=== PATIENT | male | born 1955 | race Caucasian/White ===

== ENCOUNTER 2023-02-09 16:46 | Outpatient (CLI) | payer MEDICARE ==
[2023-02-09 17:46] LABS: HEMATOCRIT 33.5 % (42.0-52.0); HEMOGLOBIN 11.5 g/dl (14.0-17.9); MEAN CORPUSCULAR HEMOGLOBIN 33.1 PG (27.0-31.0); MEAN CORPUSCULAR HGB CONC 34.3 g/dL (33.0-36.5); MEAN CORPUSCULAR VOLUME 96.6 FL (78-98); MEAN PLATELET VOLUME 9.6 FL (7.4-10.4); PLATELET COUNT 254 X10'3 (140-440); RED BLOOD COUNT 3.47 X10'6 (4.70-6.10); RED CELL DISTRIBUTION WIDTH 16.4 % (11.5-14.5); WHITE BLOOD COUNT 7.1 X10'3 (4.5-11.0)
[2023-02-09 18:00] LABS: ALANINE AMINOTRANSFERASE 450 U/L (12-78); ALBUMIN 3.3 G/DL (3.4-5.0); ANION GAP 11 (8-16); BILIRUBIN,TOTAL 16.8 MG/DL (0.1-1.0); BLOOD UREA NITROGEN 19 MG/DL (7-18); CALCIUM 9.7 MG/DL (8.5-10.1); CHLORIDE 100 MMOL/L (99-107); SODIUM 136 MMOL/L (135-145); TOTAL CARBON DIOXIDE 25.3 MMOL/L (24-32)
[2023-02-09 18:22] LABS: ANISOCYTOSIS 1+; PLATELET ESTIMATE NORMAL; TARGET CELLS 3+; TOTAL CELLS COUNTED 100
[2023-02-09 18:23] LABS: LARGE PLATELETS FEW
[2023-02-09 18:24] LABS: ALKALINE PHOSPHATASE 1050 IU/L (46-116); ASPARTATE AMINO TRANSFERASE 221 U/L (10-37); BUN/CREATININE RATIO 31.7 (10.0-20.0); GLUCOSE 205 MG/DL (70-104); POTASSIUM 3.8 MMOL/L (3.5-5.1); STOMATOCYTES 1+; TOTAL PROTEIN 6.5 G/DL (6.4-8.2); eGFR > 90 ML/MIN
[2023-02-11] MEDS ORDERED: LISI2.5T14 PO (14:57)
[2023-02-11] MEDS ORDERED: INSU100V9 SQ (14:57)
[2023-02-11] MEDS ORDERED: SIMV-45 PO (14:57)
[2023-02-11] MEDS ORDERED: INSU100V56 SQ (14:57)
[2023-02-11] MEDS ORDERED: METF-1203 PO (14:57)
== END 2023-02-09 23:59 | disposition home or self-care (01) ==
LOC: LAB 16:46
PROVIDERS: ATTEND Internal Medicine
DX: R17 Unspecified jaundice (principal)
CPT/HCPCS: 36415; 80053; 85007; 85025

== ENCOUNTER 2023-02-12 06:28 | Emergency (ER) | payer MEDICARE ==
[~2023-02-12] VITALS: Ht 170.2 cm; Wt 59.1 kg
[~2023-02-12 06:28] MED LIST: INSU100V56 SQ; INSU100V9 SQ; LISI2.5T14 PO; METF-1203 PO; SIMV-45 PO
[2023-02-12 07:21] VITALS: BP 125/53
== END 2023-02-12 07:23 | disposition home or self-care (01) ==
LOC: ER 06:29
DX: R17 Unspecified jaundice (principal); I10 Essential (primary) hypertension; E11.9 Type 2 diabetes mellitus without complications; G89.29 Other chronic pain; M54.9 Dorsalgia, unspecified; F12.10 Cannabis abuse, uncomplicated; Z79.899 Other long term (current) drug therapy
CPT/HCPCS: 99281

== ENCOUNTER 2023-02-16 11:41 | Emergency (ER) | payer MEDICARE ==
[~2023-02-16] VITALS: Ht 170.2 cm; Wt 59.1 kg
[2023-02-16 14:15] VITALS: BP 123/64
[2023-02-16 15:03] LABS: HEMOGLOBIN 11.2 g/dl (14.0-17.9); WHITE BLOOD COUNT 8.5 X10'3 (4.5-11.0)
[2023-02-16 15:05] LABS: BASOPHILS % (AUTO) 0 % (0-1); EOSINOPHILS # (AUTO) 0.2 X10'3 (0-0.9); EOSINOPHILS % (AUTO) 1.8 % (0-6); HEMATOCRIT 33.4 % (42.0-52.0); LYMPHOCYTES # (AUTO) 5.8 X10'3 (1.1-4.8); LYMPHOCYTES % (AUTO) 68.4 % (21-51); MEAN CORPUSCULAR HEMOGLOBIN 33.2 PG (27.0-31.0); MEAN CORPUSCULAR HGB CONC 33.6 g/dL (33.0-36.5); MEAN CORPUSCULAR VOLUME 98.8 FL (78-98); MEAN PLATELET VOLUME 9.3 FL (7.4-10.4); MONOCYTES # (AUTO) 0.5 X10'3 (0-0.9); MONOCYTES % (AUTO) 6.4 % (2-12); NEUTROPHILS % (AUTO) 23.4 % (42-75); PLATELET COUNT 294 X10'3 (140-440); RED BLOOD COUNT 3.38 X10'6 (4.70-6.10); RED CELL DISTRIBUTION WIDTH 17.9 % (11.5-14.5)
[2023-02-16 15:21] LABS: ANISOCYTOSIS 1+; PLATELET ESTIMATE NORMAL; TARGET CELLS 2+; TOTAL CELLS COUNTED 100
[2023-02-16 15:22] LABS: ALANINE AMINOTRANSFERASE 581 U/L (12-78); ALBUMIN 3.2 G/DL (3.4-5.0); ANION GAP 10 (8-16); BILIRUBIN,TOTAL 18.5 MG/DL (0.1-1.0); BLOOD UREA NITROGEN 18 MG/DL (7-18); BUN/CREATININE RATIO 34.6 (10.0-20.0); CALCIUM 9.6 MG/DL (8.5-10.1); CHLORIDE 104 MMOL/L (99-107); CREATININE 0.52 MG/DL (0.60-1.10); LIPASE 185 U/L (73-393); SODIUM 140 MMOL/L (135-145); STOMATOCYTES 1+; TOTAL CARBON DIOXIDE 25.8 MMOL/L (24-32); eGFR > 90 ML/MIN
[2023-02-16 15:56] LABS: ASPARTATE AMINO TRANSFERASE 269 U/L (10-37); GLUCOSE 163 MG/DL (70-104); POTASSIUM 3.5 MMOL/L (3.5-5.1); TOTAL PROTEIN 6.4 G/DL (6.4-8.2)
[2023-02-16 16:12] LABS: ALKALINE PHOSPHATASE 1074 IU/L (46-116)
== END 2023-02-16 17:42 | disposition home or self-care (01) ==
LOC: ER 11:42
DX: E80.6 Other disorders of bilirubin metabolism (principal); R17 Unspecified jaundice; I10 Essential (primary) hypertension; E11.9 Type 2 diabetes mellitus without complications; G92.9 Unspecified toxic encephalopathy; G89.29 Other chronic pain; M54.9 Dorsalgia, unspecified; F12.10 Cannabis abuse, uncomplicated; Z87.81 Personal history of (healed) traumatic fracture; Z79.899 Other long term (current) drug therapy; Z79.84 Long term (current) use of oral hypoglycemic drugs
CPT/HCPCS: 80053; 83690; 85007; 85025; 99283